=== PATIENT | female | born 1990 | race Caucasian/White ===

== ENCOUNTER 2023-01-05 19:46 | Observation (INO) | payer OTHER ==
--- OUTSIDE RECORDS SUMMARY | ~2023-01-05 | XMS | Continuity of Care Document ---
Demographics + + + | Address | [address] [facility] | | | [place] [address] | + + + | Preferred Language | Unknown | + + + | Marital Status | Never | + + + | Worship Affiliation | Unknown | + + + | Race | White | + + + | Ethnic Group | Unknown | + + + Author + + + | Author | [facility] | + + + | Organization | [facility] | + + + | Address | [address] | | | [place] [address] | + + + | Phone | | + + + Care Team Providers + + + + | Care Data Processing Control Clerk Name | Role | Phone | + + + + Unavailable | Unavailable | + + + + Allergies No information. Encounters No information. Functional Status No information. Immunizations No information. Medications No information. Problems + + + + | date | description | facility | + + + + | 2022-10-09 15:49 | [facility]OUNTER [facility] | [facility] | | | NORMAL PREGNANC | | + + + + | 2022-10-09 15:49 | [facility]OUNTER [facility] | [facility] | | | NORMAL , SECOND | | | | TRIMESTER | | + + + + | 2022-10-09 15:49 | 21 WEEKS GESTATION OF | [facility] | | | | | + + + + | 2022-10-09 16:00 | [facility]OUN[facility] | [facility] | | | NORMAL PREGNANC | | + + + + Procedures No information. Results/Labs No information. Social History +--------+ + + | date | description | facility | +--------+ + + Vital Signs No information."
[2023-01-05 23:15] LABS: SOURCE, WET MOUNT VAGINAL
[2023-01-05 23:16] LABS: EPITHELIAL CELLS, WET MOUNT 1+ (NEGATIVE)
[2023-01-05 23:17] LABS: CLUE CELLS, WET MOUNT POSITIVE (NEGATIVE)
[2023-01-05 23:18] LABS: BACTERIA, WET MOUNT 1+ (NEGATIVE); RBC, WET MOUNT NEGATIVE (NEGATIVE); TRICHOMONAS, WET MOUNT NEGATIVE (NEGATIVE); WBC, WET MOUNT 1+ (NEGATIVE); YEAST, WET MOUNT NEGATIVE (NEGATIVE)
[2023-01-06 00:32] LABS: N. GONORRRHOEAE BY PCR NOT DETECTED (NOT DETECT)
--- NOTE | 2023-01-06 10:38 | PR ---
[facility] [address], [place] [address] Signed AP Progress Notes Datetime Report Generated by CPN: 01/06/2023 10:38 Chief Complaint: Vaginal bleeding PHYSICAL EXAM: [id number] General: Normal HEENT: Normal Neurologic: Normal Abdomen: Normal Extremities: Normal Impression: 32 yo with threatened labor at 33w1d following inercourse. Not in labor. No cervical change overnight. Decreased vaginal bleeding, decreasing contractions. Plan: Discharge home in stable condition. No intercourse and nothing in vagina. Drink plenty of fluids during the day while at work. Follow up with Dr. Holder in 3 days. Prescription sent of bacterial vaginosis infection. VITAL SIGNS: [id number] Vital Signs: Reviewed; Within Normal Limits EXAM: [id number] Dilatation: 2.5 Effacement: 50 Station: -3 Contraction Comments: irregular, sometimes occurring every2-3 min MEMBRANES: [id number] Ferning: Positive Membranes: Intact FETUS A: [id number] FHR Baseline: 115 Variability: Minimal - >Undetectable to <=5bpm Accelerations: 15X15 Deceleration: None FHR Comments: No sign of hypoxemia Gestation by US: 33.1 Estimated Weight: 2300 Presentation: Vertex FETUS B: [id number] PROGRESS NOTES: [id number] Signing Physician: Willy Jensen MD *Electronically Signed* 01/06/23 1038 WILLY JENSEN MD PATIENT NAME: APPLE KAY PROGRESS NOTE DATE OF : 91 PHYSICIAN: WILLY JENSEN MD RPT #: [id number] REPORT IS CONFIDENTIAL AND NOT TO BE RELEASED WITHOUT AUTHORIZATION [address] [address] Signed Copies: ~ *Electronically Signed* 01/06/23 1038 WILLY JENSEN MD PATIENT NAME: APPLE KAY PROGRESS NOTE DATE OF : 91 PHYSICIAN: WILLY JENSEN MD RPT #: [id number] REPORT IS CONFIDENTIAL AND NOT TO BE RELEASED WITHOUT AUTHORIZATION
== END 2023-01-06 11:25 | disposition short-term general hospital (02) ==
LOC: FBCO 19:46 → DSVR 19:46 → FBC 19:47 → DSVR 01-06 11:25 → EDSTATUS 01-08 07:30
PROVIDERS: ADMIT Obstetrics & Gynecology; ATTEND Obstetrics & Gynecology
DX: O60.03 Preterm labor without delivery, third trimester (principal); Z3A.33 33 weeks gestation of pregnancy
CPT/HCPCS: 76817; 87210; G0378